=== PATIENT | male | born 1945 | race Caucasian/White ===

== ENCOUNTER 2016-05-03 05:40 | Inpatient (IN) | payer MEDICARE, BC ==
[2016-04-23 10:28] LABS: BASOPHILS % 0.5 % (0.0-2.0); EOSINOPHILS # 0.6 10^3/ul (0.0-0.5); EOSINOPHILS % 6.9 % (0.0-7.0); HEMATOCRIT 46.4 % (42.0-52.0); HEMOGLOBIN 16.1 g/dl (14.0-18.0); LYMPHOCYTES # 1.5 10^3/ul (0.8-2.9); LYMPHOCYTES % 17.2 % (15.0-51.0); MEAN CORPUSCULAR HEMOGLOBIN 35.7 pg (29.0-33.0); MEAN CORPUSCULAR HGB CONC 34.7 g/dl (32.0-37.0); MEAN CORPUSCULAR VOLUME 102.9 fl (82.0-101.0); MEAN PLATELET VOLUME 7.5 fl (7.4-10.4); MONOCYTE # 1.3 10^3/ul (0.3-0.9); MONOCYTES % 14.9 % (0.0-11.0); NEUTROPHIL # 5.3 10^3/ul (1.6-7.5); NEUTROPHILS % 60.5 % (39.0-77.0); PLATELET COUNT 176 10^3/UL (140-440); RED CELL DISTRIBUTION WIDTH 14.6 % (11.5-14.5); UNCORRECTED WBC 8.7 10^3/ul (4.8-10.8); WHITE BLOOD COUNT 8.7 10^3/ul (4.8-10.8)
[2016-04-23 10:31] LABS: ADD UMIC NO; URINE BILIRUBIN (Dip) NEGATIVE (NEGATIVE); URINE BLOOD (Dip) NEGATIVE (NEGATIVE); URINE COLOR LT. YELLOW (YELLOW); URINE GLUCOSE (Dip) NEGATIVE (NEGATIVE); URINE KETONES (Dip) NEGATIVE (NEGATIVE); URINE LEUKOCYTE ESTERASE (Dip) NEGATIVE (NEGATIVE); URINE NITRITE (Dip) NEGATIVE (NEGATIVE); URINE TOTAL PROTEIN (Dip) NEGATIVE (NEGATIVE); URINE UROBILINOGEN (Dip) 0.2 E.U./dL (0.1-1.0)
[2016-04-23 10:35] LABS: CONDITION 1; LH ANALYZER COMMENTS 1
[2016-04-23 10:36] LABS: INR 1.04; PROTIME 13.6 Sec (12.2-14.2); PT RATIO 1.1
[2016-04-23 10:37] LABS: PARTIAL THROMBOPLASTIN TIME 30.2 Sec (25.0-35.0)
[2016-04-23 11:19] LABS: ALBUMIN 4.2 g/dl (3.3-4.9)
[2016-04-23 11:20] LABS: POTASSIUM 4.8 mmol/L (3.5-5.1)
[2016-04-23 11:22] LABS: ALBUMIN/GLOBULIN RATIO 1.16; BILIRUBIN,INDIRECT 0.8 mg/dl (0-1.1); BILIRUBIN,TOTAL 0.8 mg/dl (0.2-1.3); CALCIUM 9.7 mg/dl (8.4-10.2); CREATININE 1.23 mg/dl (0.61-1.24); TOTAL PROTEIN 7.8 g/dl (6.1-8.1)
[2016-05-02 10:12] VITALS: BMI 27.8
[~2016-05-03] VITALS: Ht 185.4 cm; Wt 93.9 kg
[2016-05-03] VITALS (28 sets, daily range): BP systolic 136–170; BP diastolic 55–79; PULSE 54–78; RESP 16–24; Ht 185.4 cm; Wt 93.9 kg
[~2016-05-03 05:40] MED LIST: ALLO100T PO; CHOL200043 PO; CIALIS PO; CYAN100018 PO; ETAN50PE2 SQ; FLUR30CA12 PO; LEVO50TA74 PO
[2016-05-03] MEDS ORDERED: CEFAZOLIN 2 GM/50 ML (PMX) 50 ML IVPB ONE (06:30)
[2016-05-03] MEDS ORDERED: BUPIVACAINE 0.5% (SDV) 30 ML, morphine SULFATE (PF) 8 MG, EPINEPHrine 0.3 MG, KETOROLAC... IRR SCH ×7 (06:30)
[2016-05-03] MEDS ORDERED: DEXAMETHASONE 1 MG TAB PO ONE (06:30)
[2016-05-03] MEDS ORDERED: TRANEXAMIC ACID 1,000 MG in SOD CHLORIDE 0.9% 100 ML IVPB ONE (06:30)
[2016-05-03] MEDS ORDERED: oxyCODONE (CR) 10 MG TAB [oxyCONTIN] PO ONE (06:30)
[2016-05-03] MEDS ORDERED: SOD CHLORIDE 0.9% 100 ML, TRANEXAMIC ACID 3,000 MG IRR ONE ×2 (06:30)
[2016-05-03] MEDS ORDERED: GABAPENTIN 300 MG CAP PO ONE (06:30)
[2016-05-03] MEDS ORDERED: traMADol 50 MG TAB PO ONE (06:30)
[2016-05-03] MEDS ORDERED: CA CHLORIDE 10% 10 ML SYRINGE ONE (06:36)
[2016-05-03] MEDS ORDERED: BUPIVACAINE 0.5%/EPI (SDV) 30 ML INJ ONE (06:36)
[2016-05-03] MEDS ORDERED: POLYMYXIN/BACITRACIN 1L IRRIG ONE (06:37)
[2016-05-03] MEDS ORDERED: THROMBIN 5000 UNIT VIAL ONE (06:37)
[2016-05-03] MEDS ORDERED: ROCURONIUM 50 MG INJ ONE (06:57)
[2016-05-03] MEDS ORDERED: PROPOFOL 20 ML ONE (06:57)
[2016-05-03] MEDS ORDERED: ONDANSETRON 4 MG INJ ONE (06:57)
[2016-05-03] MEDS ORDERED: FENTAnyl 50 MCG/ML VIAL ONE (06:57)
[2016-05-03] MEDS ORDERED: ROPIVACAINE 0.5 % 30 ML VIAL ONE (06:57)
[2016-05-03] MEDS ORDERED: GLYCOPYRROLATE 0.4 MG INJ ONE (06:57)
[2016-05-03] MEDS ORDERED: MIDAZOLAM 1 MG/ML 2 ML INJ ONE (06:57)
[2016-05-03] MEDS ORDERED: DEXAMETHASONE 4 MG/ML 1 ML INJ ONE (06:58)
[2016-05-03] MEDS ORDERED: CEFAZOLIN 1 GM INJ ONE (07:00)
[2016-05-03] MEDS ORDERED: hydrALAzine 20 MG INJ ONE (07:26)
[2016-05-03] MEDS ORDERED: NEOSTIGMINE 3 MG/3 ML SYRINGE ONE (07:46)
[2016-05-03] MEDS ORDERED: TRIMETHOBENZAMIDE 100 MG/ML VIAL IM PRN (08:00)
[2016-05-03] MEDS ORDERED: MEPERIDINE 25 MG INJ IV PRN (08:00)
[2016-05-03] MEDS ORDERED: hydrALAzine 20 MG INJ IV PRN (08:00)
[2016-05-03] MEDS ORDERED: EPHEDrine SULFATE 50 MG/5 ML SYG IV PRN (08:00)
[2016-05-03] MEDS ORDERED: MIDAZOLAM 1 MG/ML 2 ML INJ IV PRN (08:00)
[2016-05-03] MEDS ORDERED: FENTAnyl 50 MCG/ML VIAL IV PRN ×3 (08:00)
[2016-05-03] MEDS ORDERED: DIPHENHYDRAMINE 50 MG INJ IV PRN ×2 (08:00→09:00)
[2016-05-03] MEDS ORDERED: ONDANSETRON 4 MG INJ IV PRN ×2 (08:00→09:00)
[2016-05-03] MEDS ORDERED: HYDROmorphONE (0.2 MG/ML) 10ML SYG IV PRN ×3 (08:00)
--- NOTE | 2016-05-03 08:11 | PREOPHP ---
DATE OF ADMISSION: 05/03/2016 HISTORY OF PRESENT ILLNESS: Boaz is coming for a revision of right partial shoulder replacement. Anila mattson had the original replacement done in August 2015. PAST MEDICAL HISTORY: Includes, renal insufficiency, kidney stones. His creatinine is 1.28. He is prediabetic. His hemoglobin A1c is 6.4. He also has a medical history of anxiety, erectile dysfunc tion, elevated estrogen levels, nighttime hypoxemia, hypogonadism, hypothyroidism, psoriasis and hyp erlipidemia. ALLERGIES: 1. BACTRIM. 2. TETRACYCLINE. 3. ATENOLOL. 4. ALBUTEROL. 5. LIPITOR. 6. AZITHROMYCIN. MEDICATIONS: He is currently on: 1. Enbrel. 2. Allopurinol. 3. Levothyroxine. 4. Flurazepam. 5. Anastrozole. 6. Cialis. 7. Vitamin D. 8. Vitamin B12. 9. Folinic acid. PAST SURGICAL HISTORY: Includes shoulder surgery done 2015. PHYSICAL EXAMINATION: VITAL SIGNS: Blood pressure was 132/74, pulse is 58, respirations 16, weight is 212 pounds. GENERAL: His physical exam is for the most part unremarkable. HEENT: He does wear glasses. LUNGS: Lung sounds were within normal limits. CHEST: Heart rate is a little bit bradycardic. His pulse was 58, but went down to 48. He does have a little bit of mild obesity. ASSESSMENT: For the most part, Boaz is stable and what we would consider a moderate risk for surgery . IMAGING: His chest x-ray is within normal limits as well as his urine analysis. Dr. Sharon Mclain dicating HIstory and Physical for Dr. Mya Galvez. Dictated By: MYA GIANG/LUIS FERNANDO Conf#: [id number] DID#: [id number]
--- NOTE | 2016-05-03 08:51 | HPN ---
Date/Time of Note Date/Time of Note DATE: 05/03/16 TIME: 08:51 Interval H&P Admission Note Pt. seen H&P reviewed: No system changes MYA BYRD MD May 03, 2016 08:51
--- NOTE | 2016-05-03 08:52 | PDOCDIS ---
Discharge Instructions DIAGNOSIS Discharge Diagnosis: Failed shoulder replacement CONDITION Patient Condition: Good HOME CARE INSTRUCTIONS: Diet Instructions: Regular ACTIVITY: Activity Restrictions: Slowly Increase Activity Keep Limb Elevated FOLLOW UP/APPOINTMENTS Appointments 2 weeks SCHOOL/WORK RELEASE May return to School/Work with: With Restrictions School/Work Release Comment: Five pound table top usage for four weeks MYA BYRD MD May 03, 2016 08:52
[2016-05-03] MEDS ORDERED: CEFAZOLIN 1 GM/50 ML (PMX) 50 ML IVPB SCH (09:00)
[2016-05-03] MEDS ORDERED: TRANEXAMIC ACID 1,000 MG in SOD CHLORIDE 0.9% 100 ML IV ONE (09:00)
[2016-05-03] MEDS ORDERED: KETOROLAC 15 MG INJ IV PRN (09:00)
[2016-05-03] MEDS ORDERED: MAGNESIUM HYDROXIDE 30ML CUP PO PRN (09:00)
[2016-05-03] MEDS ORDERED: OXYCODONE/ACETAMINOPHEN (5/325) TAB PO PRN ×2 (09:00)
[2016-05-03] MEDS ORDERED: ZOLPIDEM 5 MG TAB PO PRN (09:00)
[2016-05-03] MEDS ORDERED: morphine 4 MG/ML VIAL IV PRN (09:00)
[2016-05-03] MEDS ORDERED: ACETAMINOPHEN 500 MG TAB PO PRN (09:00)
--- NOTE | 2016-05-03 10:09 | RADRPT ---
PROCEDURE: XR Right Shoulder CLINICAL INDICATION: Postop TECHNIQUE: 3 portable views were obtained COMPARISON: 10/06/2015 FINDINGS: Osseous structures: The previous arthroplasty is been replaced with a reversed total right shoulder replacement with the components well-seated. The osseous elements are otherwise intact. Joint spaces: The glenohumeral joint appears unremarkable. The AC joint appears normal. Soft tissues: appear unremarkable. IMPRESSION: 1. Interval replacement of the right shoulder arthroplasty with a reversed total right shoulder rep lacement. 2. The components are well seated and the osseous elements appear intact. Physician Amari Date Time Electronically viewed and signed by Physician Amari on 05/03/2016 10:09 /
--- NOTE | 2016-05-03 10:56 | OPR ---
DATE OF OPERATION: 05/03/2016 ATTENDING PHYSICIAN: Mya Galvez MD PREOPERATIVE DIAGNOSIS: Failed right shoulder hemiarthroplasty. POSTOPERATIVE DIAGNOSES: 1. Failed right shoulder hemiarthroplasty. 2. Massive rotator cuff tear. PROCEDURE: Right shoulder revision of hemiarthroplasty to reverse total shoulder. STUCCO APPLICATOR SURGEON: Arsh Ferreira MD was asked to be present at my request as a result of the complexit y associated with the procedure including positioning of the extremity, manipulation, and protection of the neurovascular structures. In my opinion, the assistance offered by a surgical nurse practitioner is insufficient and Dr. Ferreira should be compensated for his time. PROCEDURE IN DETAIL: Following administration of general endotracheal anesthesia, the patient was p laced in the beach chair position. The right upper extremity was prepped and draped in usual steril e fashion. An extended deltopectoral incision was then undertaken and the subdeltoid plane was then identified and elevated. The supraspinatus was seen to be completely torn. The subscapularis was completely torn as well and the head was subluxed anteriorly. The humeral head was then delivered a nd the humeral component was removed up to the metaphysis with the diaphysis being left intact. The glenoid was then exposed. Peripheral osteophytes were removed. Capsulectomy completed. The ce ntral canal was entered and a DePuy baseplate was then applied with 4 peripheral screws with solid f ixation. A glenosphere was then applied with solid fixation. The humeral shaft was then addressed and prepared for a standard DePuy metaphysis. A 6 mm liner was seen to be the best fit. The actual components were then placed. The joint was reduced and taken through a full range of motion with no instability. The joint was irrigated thoroughly, closed using 2-0 Vicryl, 4-0 Monocryl, Steri-Strips and a Prineo dressing. A watertight closure was obtained. The patient was then awakened and transported to [facility] in stable condition, tolerated the procedure well. Estimated blood loss for this procedure wa s 100 mL. Postoperative radiographs will be obtained in the recovery room. Dictated By: MYA GIANG/NTS Conf#: [id number] [facility]#: [id number]
[2016-05-03] MEDS: ALLOPURINOL 100 MG TAB PO SCH ×2 (12:26→20:23)
[2016-05-03] MEDS: SENNA/DOCUSATE NA (8.6MG/50MG) TAB PO SCH ×2 (12:26→20:23)
[2016-05-03] MEDS: DEXAMETHASONE 2 MG TAB PO SCH ×3 (12:26→23:37)
[2016-05-03] MEDS: CEFAZOLIN 1 GM/50 ML (PMX) 50 ML IVPB SCH ×2 (16:08→23:37)
[2016-05-03] MEDS ORDERED: GABAPENTIN 300 MG CAP PO SCH (21:00)
[2016-05-03] MEDS: morphine 2 MG INJ IV PRN (23:37)
[2016-05-04] VITALS: BP 131/62; RESP 18
[2016-05-04] MEDS: morphine 2 MG INJ IV PRN (04:38)
[2016-05-04] MEDS: DEXAMETHASONE 2 MG TAB PO SCH (05:58)
[2016-05-04 05:59] VITALS: BP 149/67; PULSE 60; RESP 18
[2016-05-04] MEDS: CEFAZOLIN 1 GM/50 ML (PMX) 50 ML IVPB SCH (05:59)
[2016-05-04] MEDS ORDERED: LEVOTHYROXINE 50 MCG TAB PO SCH (06:00)
--- NOTE | 2016-05-04 07:17 | PN ---
Date/Time of Note Date/Time of Note DATE: 05/04/16 TIME: 07:15 24 hour Interval Summary Lew is having moderate to severe pain at this point. He did have a reasonable night but the block wore off about 230. Physical examination reveals that the wound is clean and dry. He is neurologically intact. There are no signs of DVT. Assessment: Status post total hip Plan: He will begin physical therapy this morning discharged later this afternoon if if he is comfortable with his pain control. Otherwise, he will stay overnight. Physical Exam Vital Signs Date Time Temp Pulse Resp B/P Pulse Ox O2 Delivery O2 Flow Rate FiO2 05/04/16 05:59 98.3 60 18 149/67 95 Room Air 05/03/16 14:00 2.0 Intake and Output 05/03/16 05/03/16 05/04/16 15:00 23:00 07:00 Intake Total 2310 ml 530 ml 750 ml Output Total 30 ml 550 ml 900 ml Balance 2280 ml -20 ml -150 ml VTE Prophylaxis VTE Prophylaxis Intervention: anti-embolic stocking Lines/Catheters IV Catheter Type: Saline Lock Heck in Place: No Medications Medications Home Meds Reported Medications Cholecalciferol (Vitamin D3) (D3 DOTS) 2,000 Unit Tablet, 57119 UNIT PO DAILY, TAB 10/05/15 Cyanocobalamin (B12 Health Booster) 1,000 Mcg/15 Ml Oral.susp, 1000 MCG PO ONCE 10/05/15 Flurazepam Hcl (Flurazepam Hcl) 30 Mg Capsule, 30 MG PO, CAP 10/05/15 Levothyroxine Sodium* (Levothyroxine Sodium*) 50 Mcg Tablet, 50 MCG PO BEFORE BREAKFAST, #30 TAB 10/05/15 Allopurinol* (Allopurinol*) 100 Mg Tablet, 100 MG PO TID, TAB 10/05/15 Etanercept (Enbrel) 50 Mg/Ml Pen.injctr, 50 MG SQ MONWEDFRI 10/05/15 [Cialis] No Conflict Check, 5 MG PO 10/05/15 MYA BYRD MD May 04, 2016 07:17
--- NOTE | 2016-05-04 07:18 | DS ---
Date/Time of Note Date/Time of Note DATE: 05/04/16 TIME: 07:17 Discharge Summary Admission/Discharge Info Admit Date/Time May 03, 2016 at 05:40 Discharge Date/Time May 04, 2016 following clearance by physical therapy and if pain is under control this afternoon. Final Diagnosis Failed right shoulder proximal humeral replacement. Patient Condition: Good Procedures Revision of proximal humeral replacement to reverse total shoulder. Hx of Present Illness Pain and stiffness following proximal humeral replacement. Hospital Course Patient underwent conversion to reverse total shoulder followed by observation. Home Meds Reported Medications Cholecalciferol (Vitamin D3) (D3 DOTS) 2,000 Unit Tablet, 31706 UNIT PO DAILY, TAB 10/05/15 Cyanocobalamin (B12 Health Booster) 1,000 Mcg/15 Ml Oral.susp, 1000 MCG PO ONCE 10/05/15 Flurazepam Hcl (Flurazepam Hcl) 30 Mg Capsule, 30 MG PO, CAP 10/05/15 Levothyroxine Sodium* (Levothyroxine Sodium*) 50 Mcg Tablet, 50 MCG PO BEFORE BREAKFAST, #30 TAB 10/05/15 Allopurinol* (Allopurinol*) 100 Mg Tablet, 100 MG PO TID, TAB 10/05/15 Etanercept (Enbrel) 50 Mg/Ml Pen.injctr, 50 MG SQ MONWEDFRI 10/05/15 [Nery] No Conflict Check, 5 MG PO 10/05/15 Follow-up Plan 2 weeks Pending Labs None MYA BYRD MD May 04, 2016 07:18
[2016-05-04 08:00] VITALS: BP 142/60; PULSE 58; RESP 15
[2016-05-04] MEDS: ALLOPURINOL 100 MG TAB PO SCH (08:47)
[2016-05-04] MEDS: SENNA/DOCUSATE NA (8.6MG/50MG) TAB PO SCH (08:47)
[2016-05-04] MEDS ORDERED: ASPIRIN 81 MG TAB PO SCH (09:00)
[2016-05-04 11:15] VITALS: BP 146/69; PULSE 60
== END 2016-05-04 11:20 | disposition home or self-care (01) | DRG 483 ==
LOC: REC 05:40 → MS1 10:50
PROVIDERS: ADMIT Orthopaedic Surgery; ATTEND Orthopaedic Surgery
PROC: 0RPJ0JZ Removal of Synthetic Substitute from Right Shoulder Joint, Open Approach (ICD-10-PCS; 2016-05-03)
PROC: 0RRJ00Z Replacement of Right Shoulder Joint with Reverse Ball and Socket Synthetic Substitute, Open Approach (ICD-10-PCS; principal; 2016-05-03 07:00)
DX: T84.098A Other mechanical complication of other internal joint prosthesis, initial encounter (principal); I10 Essential (primary) hypertension; M75.121 Complete rotator cuff tear or rupture of right shoulder, not specified as traumatic; M10.9 Gout, unspecified; E78.5 Hyperlipidemia, unspecified; E03.9 Hypothyroidism, unspecified; Y83.2 Surgical operation with anastomosis, bypass or graft as the cause of abnormal reaction of the patient, or of later complication, without mention of misadventure at the time of the procedure; Y92.89 Other specified places as the place of occurrence of the external cause
CPT/HCPCS: 80053; 81003; 85025; 85610; 85730; 86999; 87070; 87075; 97166; Z7610; J0171; J0360; J0690; J0735; J1100; J1885; J2250; J2270; J2274; J2405; J2710; J2795; J3010; J3370

== ENCOUNTER 2018-03-11 05:21 | Inpatient (IN) | END 2018-03-12 11:39 | disposition home or self-care (01) | DRG 483 ==